=== PATIENT | male | born 1965 | race Caucasian/White ===

== ENCOUNTER 2024-01-25 12:28 | Outpatient (CLI) | payer BC, SELFPAY | END 2024-01-25 12:29 | disposition home or self-care (01) | LOC: ANHAUDASC 12:29 | PROVIDERS: PCP Internal Medicine; Visit Provider Internal Medicine | DX: H93.19 Tinnitus, unspecified ear (principal); H90.3 Sensorineural hearing loss, bilateral | CPT/HCPCS: 92557; 92567 ==

== ENCOUNTER 2024-02-28 01:10 | Day surgery (SDC) | payer BC, SELFPAY ==
[2024-02-08 14:35] VITALS: BMI 31.6
[2024-02-28 11:33] VITALS: BP 129/74; PULSE 82; RESP 18; TEMP 36.6; O2SAT 98
[2024-02-28 11:42] LABS: Glucose Point of Care 109 mg/dl (65-105)
--- NOTE | 2024-02-28 11:58 | WPDANESEPPF ---
Anes - Initial Pre Proc Eval Procedure: Operation Date: 02/28/24 12:30 Proposed Procedures p Colonoscopy - Maury Vang MD Date/Time: 02/28/24 11:58 Surgeon: Maury Vang MD Pre Op Diagnosis: Melena, Personal History colon polyps Patient Data Age: 58 Gender: M Height: 1.85 m Weight: 109 kg Last Vital Signs Temp 97.9 F 02/28/24 11:33 Pulse 82 02/28/24 11:33 Resp 18 02/28/24 11:33 BP 129/74 02/28/24 11:33 Pulse Ox 98 02/28/24 11:33 O2 Del Method Room Air 02/28/24 11:33 Allergies Allergy/AdvReac Type Severity Reaction Status Date / Time No Known Allergies Allergy Verified 02/28/24 11:32 Home Medications Medication Instructions Recorded Confirmed Type adapalene 0.3 % topical gel 1 applic topical BID 09/21/20 02/08/24 History syringe with needle 3 mL 21 gauge #100 ea 04/21/23 01/09/24 Rx x 1 (BD Luer-Katey Syringe) semaglutide 1 mg/dose (2 mg/1.5 2 mg (1.5 mL) subcut WEEKLY #3 mL 07/11/23 02/08/24 Rx mL) subcutaneous pen injector cyclobenzaprine 10 mg tablet See Rx Instructions .Route 11/13/23 02/08/24 Rx .COMPLEX #30 tabs atorvastatin 10 mg tablet 10 mg PO DAILY #90 tabs 01/09/24 02/08/24 Rx doxycycline hyclate 100 mg capsule See Rx Instructions .Route 02/05/24 02/08/24 Rx .COMPLEX #20 caps testosterone cypionate 200 mg/mL 100 mg (0.5 mL) IM WEEKLY #10 mL 02/05/24 02/08/24 Rx intramuscular oil losartan 25 mg tablet 25 mg PO DAILY #90 tabs 02/07/24 02/08/24 Rx Laboratory Tests 02/28/24 11:40 POC Capillary Glucose 109 H mg/dl (65-105) Patient hx anesthesia problems: none Family hx anesthesia problems: none Results Review: All pre-operative results and documents have been reviewed as part of the pre-operative evaluation. [facility] Past Medical History Medical History Atypical mole DM w/o complication type II Elevated liver enzymes Encounter for monitoring testosterone replacement therapy Hypertriglyceridemia Male hypogonadism Morbid obesity due to excess calories Surgical History Surgical History H/O sinus surgery 12/2018 Family History Family History Father History of prostate surgery Mother Tuberculosis Heart disease Social History Social History (Updated 01/09/24 @ 09:33 by Patt Lara CMA) Smoking packs per day: 2 Smoking cigarettes per day: 40.0 Years smoked: 10 Smoking pack-years: 20.00 Smoking status: Former smoker Tobacco type: cigarettes Smoking end date: 10/02/03 Alcohol intake: current Drinks per week: 5 Alcohol use details: Pt drinks weekly. Substance use: current Substance use type: marijuana Do You Feel Safe in your Home?: Yes Lack of Transportation: No Lack of Food: Never True Current Housing: I Have Housing Concerned About Future Housing: No Difficulty Paying Gas/Electric Bills: No Difficulty Paying for Meds: No Currently Unemployed: No Education: High School Diploma/GED Difficulty w/ Childcare or Family Care: No Living arrangements: with family Spiritual care concerns: No Anes - Eval Final PreProcedure Day of Procedure 02/28/24 11:58 Patient weight: obese Heart: regular rate and rhythm Lungs: clear to auscultation Airway: Mallampati scale class II Neurological: alert and oriented Last oral intake: >/= 8 hours ASA classification: III Emergent: no Anesthetic plan: proceed Anesthesia type and monitoring: general GIVS and standard monitoring Results Review: All pre-operative results and documents have been reviewed as part of the pre-operative evaluation. Informed Consent: The patient's anesthetic plan and its attendant risks and benefits were discussed with the patient/family/POA. Questions were solicited and answers provided to the satisfaction
--- NOTE | 2024-02-28 11:59 | PM.HPGS ---
History of Present Illness History of Present Illness Consent: Risks, benefits, and alternatives have been discussed and questions answered. Patient agrees to proceed with procedure. Chief complaint: colon screening Narrative: Bjorn Callahan is a 58 year old male here for colonoscopy, last one 10 years ago Review of Systems Review of Systems: All systems reviewed & are unremarkable except as noted in HPI and below PMFSH Past Medical History Medical History Atypical mole DM w/o complication type II Elevated liver enzymes Encounter for monitoring testosterone replacement therapy Hypertriglyceridemia Male hypogonadism Morbid obesity due to excess calories Surgical History Surgical History H/O sinus surgery 12/2018 Family History Family History Father History of prostate surgery Mother Tuberculosis Heart disease Social History Social History Smoking packs per day: 2 Smoking cigarettes per day: 40.0 Years smoked: 10 Smoking pack-years: 20.00 Smoking status: Former smoker Tobacco type: cigarettes Smoking end date: 10/02/03 Alcohol intake: current Drinks per week: 5 Alcohol use details: Pt drinks weekly. Substance use: current Substance use type: marijuana Do You Feel Safe in your Home?: Yes Lack of Transportation: No Lack of Food: Never True Current Housing: I Have Housing Concerned About Future Housing: No Difficulty Paying Gas/Electric Bills: No Difficulty Paying for Meds: No Currently Unemployed: No Education: High School Diploma/GED Difficulty w/ Childcare or Family Care: No Living arrangements: with family Spiritual care concerns: No Meds Home Medications and Allergies Home Medications Medication Instructions Recorded Confirmed Type adapalene 0.3 % topical gel 1 applic topical BID 09/21/20 02/08/24 History syringe with needle 3 mL 21 gauge #100 ea 04/21/23 01/09/24 Rx x 1 (BD Luer-Katey Syringe) semaglutide 1 mg/dose (2 mg/1.5 2 mg (1.5 mL) subcut WEEKLY #3 mL 07/11/23 02/08/24 Rx mL) subcutaneous pen injector cyclobenzaprine 10 mg tablet See Rx Instructions .Route 11/13/23 02/08/24 Rx .COMPLEX #30 tabs atorvastatin 10 mg tablet 10 mg PO DAILY #90 tabs 01/09/24 02/08/24 Rx doxycycline hyclate 100 mg capsule See Rx Instructions .Route 02/05/24 02/08/24 Rx .COMPLEX #20 caps testosterone cypionate 200 mg/mL 100 mg (0.5 mL) IM WEEKLY #10 mL 02/05/24 02/08/24 Rx intramuscular oil losartan 25 mg tablet 25 mg PO DAILY #90 tabs 02/07/24 02/08/24 Rx Allergies Allergy/AdvReac Type Severity Reaction Status Date / Time No Known Allergies Allergy Verified 02/28/24 11:32 Vital Signs Vital Signs - 24 hr 02/28/24 11:33 Temperature 97.9 F Pulse Rate 82 Respiratory Rate 18 Blood Pressure 129/74 Pulse Oximetry 98 Oxygen Delivery Room Air Exam Const: General: comfortable and no acute distress HENMT: Face/Nose/Sinus: Normal nares present Eyes: General: appearance normal, both eyes and all related structures Neck: Neck: no JVD Resp: Auscultation: clear to auscultation bilaterally Cardio: Rate: regular rate Rhythm: regular rhythm GI: Inspection: non-distended GI Palp: Yes Soft to palpation Skin: General skin exam: normal color Neuro: General: gait normal Speech: normal speech Extrem: General: normal to inspection Psych: Mental Status: mental status grossly normal Assessment and Plan Assessment and plan (1) Colon cancer screening: Code(s): Z12.11 - Encounter for screening for malignant neoplasm of colon Status: Acute Assessment and Plan: colonoscopy
[2024-02-28] MEDS: LACTATED RINGERS 1,000 ML 150 ML IV CONT (12:14)
[2024-02-28 12:17] VITALS: BP 87/59; PULSE 82; RESP 19; O2SAT 93
[2024-02-28 12:27] VITALS: BP 95/94; PULSE 84; RESP 19; O2SAT 95
[2024-02-28 12:37] VITALS: BP 101/64; PULSE 80; RESP 16; O2SAT 96
== END 2024-02-28 12:49 | disposition home or self-care (01) ==
PROVIDERS: PCP Internal Medicine; Visit Provider Internal Medicine Gastroenterology
PROC: 0DJD8ZZ Inspection of Lower Intestinal Tract, Via Natural or Artificial Opening Endoscopic (ICD-10-PCS; CPT 45378; principal; 2024-02-28 12:30)
DX: Z12.11 Encounter for screening for malignant neoplasm of colon (principal); K63.5 Polyp of colon; K57.30 Diverticulosis of large intestine without perforation or abscess without bleeding; K64.8 Other hemorrhoids; E11.9 Type 2 diabetes mellitus without complications; E78.1 Pure hyperglyceridemia; E66.9 Obesity, unspecified; Z68.31 Body mass index [BMI] 31.0-31.9, adult; Z87.891 Personal history of nicotine dependence; F12.90 Cannabis use, unspecified, uncomplicated; Z79.85 Long-term (current) use of injectable non-insulin antidiabetic drugs; Z79.890 Hormone replacement therapy
CPT/HCPCS: 45380; 82948; 88305; J2704; J7120

== ENCOUNTER 2024-10-01 11:00 | Outpatient (RCR) | payer BC, SELFPAY ==
--- NOTE | 2024-08-27 09:34 | OPREHPOC ---
Outpatient Therapy Plan of Care This is a Multidisciplinary Plan of Care that may contain components documented by all disciplines (PT, OT, and ST.) PT Problem 1 PT Problem #1 Knowledge Deficit PT Goal 1 Goal / Goal Update Pt to be IND with HEP Target Visit 6 PT Problem 2 PT Problem #2 Pain PT Goal 1 Goal / Goal Update 1. Pt to report shoulder pain no greater than 3/10 in the last week. 2. Pt to report being able to sleep though the night. Target Visit 6 PT Problem 3 PT Problem #3 Impaired Range of Motion PT Goal 1 Goal / Goal Update 1. Pt to improve active shoulder flexion to 150 deg be able to reach overhead 2. Pt to improve active shoulder int rot to L1 to be able to reach back to put jacket on. Target Visit 6 PT Problem 4 PT Problem #4 Impaired Strength PT Goal 1 Goal / Goal Update 1. Pt to demonstrate equal strength dian Target Visit 6
--- NOTE | 2024-08-27 09:35 | PTOPEVAL1 ---
Assessment and note entered by Misty Love, PT, DPT Evaluation Information Assessment Status Evaluation Diagnosis L shoulder pain ICD-10 Condition Codes (PT) M25.512 Onset 3 months Subjective Information Pt report no shoulder pain at rest, he states the most difficulty thing is reaching behind his back to put a belt or a coat on. He declines a KAREN, pain for the last 3 months. Reports no pain when carrying things or reaching out in front of him. Pt has a desk job. Reported Pain Level Pain Score 0: Self Report Assessment PT Clinical Summary Pt presents to therapy today for his initial evaluation with a diagnosis of L shoulder pain. Today he demonstrates symptoms consistent with shoulder impingement syndrome. He demonstrates decreased active shoulder ROM on the L when compared to the R. Strength is maintained with only a minor decrease, limited by pain. He has slightly rounded shoulders in sitting. Skilled physical therapy services are indicated to address the deficits noted above, to improve ROM, to decreased pain, and to return to prior level of function. Plan of Care Interventions Electrical Stimulation,Hot Pack/Cold Pack,Manual Therapy,Neuro Re-education,Patient/Caregiver Educati,Therapeutic Activities,Therapeutic Exercise PT Services Indicated Yes Treatment Frequency and 1x/wk for 6 visits Duration These treatments will address the objective and functional deficits as defined above. The patient will be advanced safely and appropriately in order for the patient to progress towards his/her prior level of function. Additional exercises will be introduced and as well as a comprehensive home exercise program upon discharge, if needed, ?to ensure carryover of functional gains achieved in the clinic. This treatment plan has been reviewed and agreement upon by the patient.
--- NOTE | 2024-10-01 11:35 | OPREHPOC ---
Outpatient Therapy Plan of Care This is a Multidisciplinary Plan of Care that may contain components documented by all disciplines (PT, OT, and ST.) PT Problem 1 PT Problem #1 Knowledge Deficit PT Goal 1 Goal / Goal Update Pt to be IND with HEP Target Visit 6 Progress Met PT Problem 2 PT Problem #2 Pain PT Goal 1 Goal / Goal Update 1. Pt to report shoulder pain no greater than 3/10 in the last week. 2. Pt to report being able to sleep though the night. 10/01/24: 1. met 2. progressing Target Visit 6 Progress Partially Met PT Problem 3 PT Problem #3 Impaired Range of Motion PT Goal 1 Goal / Goal Update 1. Pt to improve active shoulder flexion to 150 deg be able to reach overhead 2. Pt to improve active shoulder int rot to L1 to be able to reach back to put jacket on. 10/01/24: 1-2. met Target Visit 6 PT Problem 4 PT Problem #4 Impaired Strength PT Goal 1 Goal / Goal Update 1. Pt to demonstrate equal strength dian Target Visit 6 Progress Met
--- NOTE | 2024-10-01 11:35 | PTOPDC ---
Assessment and note entered by Misty Love, PT, DPT Evaluation Information Assessment Status Discharge Diagnosis L shoulder pain ICD-10 Condition Codes (PT) Pain in left shoulder M25.512 Onset 3 months Subjective Information Pt states overall his shoulder is doing better than when he started therapy. He states he will still wake up with shoulder pain at times. He states most of the time when he is putting his jacket on he will not feel pain but will have slight pain when reaching far behind him. Reported Pain Level Pain Score 0: Self Report Assessment PT Clinical Summary Pt has completed 5 visits of skilled therapy to treat his L shoulder pain. Reports improved pain and function. Has met all of his therapy goals and no longer requires skilled services. D/c at this time to continue HEP. Plan of Care PT Services Indicated No
== END 2024-10-03 08:31 | disposition home or self-care (01) ==
LOC: ANHGOSHPT 11:00
PROVIDERS: PCP Internal Medicine; Visit Provider Internal Medicine
DX: M25.512 Pain in left shoulder (principal)
CPT/HCPCS: 97014; 97110; 97140; 97161; G0283